=== PATIENT | female | born 1985 | race Caucasian/White ===

== ENCOUNTER 2022-05-21 12:21 | Emergency (ER) | payer OTHER, MEDICAID, SELFPAY ==
[2022-05-21 12:29] VITALS: BP 150/87; PULSE 96; RESP 18; TEMP 36.9; O2SAT 98; BMI 33.3
--- NOTE | 2022-05-21 13:17 | ED_ITS ---
HPI - Wound/Laceration <SANAM Franco - Last Filed: 05/21/22 13:27> General Chief Complaint: Wound/Laceration Stated Complaint: Lt. hand middle fingure spider bite Time Seen by Provider: 05/21/22 12:58 Source: patient Mode of arrival: Ambulatory History of Present Illness HPI narrative: 28-year-old female, nonsmoker, presents emergency department with left hand middle finger lesion and psoriasis flare of left hand and bilateral feet. Patient tried to drain the lesion but states that it only makes it worse. Left middle finger is now red and swollen. Lesion left palm and feet are consistent with a psoriasis flare. Patient reports he typically is treated with a tapering dose of steroids for this. Related Data Previous Rx's Medication Instructions Recorded cephalexin 500 mg capsule 1,000 mg PO BID Cellulitis 10 days 05/21/22 #40 caps prednisone 20 mg tablet 20 mg PO DAILY Psoriasis flare #15 05/21/22 tabs Allergies Allergy/AdvReac Type Severity Reaction Status Date / Time sulfamethoxazole Allergy Intermediate Hives Verified 05/21/22 12:34 [From Bactrim] trimethoprim [From Bactrim] Allergy Intermediate Hives Verified 05/21/22 12:34 Review of Systems <SANAM Franco - Last Filed: 05/21/22 13:27> Review of Systems Narrative: Narrative: GENERAL: Denies chills, fatigue, fever, sweats. See HPI HEENT: Denies sinus pain, ear pain, sore throat, difficulty swallowing, dizziness. RESPIRATORY: Denies dyspnea, cough, wheezing, sputum. CARDIOVASCULAR: Denies chest pain, palpitations, edema. GASTROINTESTINAL: Denies nausea, vomiting, abdominal pain, diarrhea, constipation. : Denies dysuria, frequency, incontinence, hematuria, urinary retention, flank pain. MSK: Endorses weakness of left hand secondary to pain from the lesion and psoriasis outbreak. SKIN: Endorses a 0.3 cm pustular lesion on left middle finger proximal phalange. NEUROLOGIC: Denies weakness, dizziness, headache, numbness, confusion. PSYCHIATRIC: No concerning psychosocial issues. Patient History <SANAM Franco - Last Filed: 05/21/22 13:27> Social History Smoking Status: Never smoker Smoking Status: Never smoker alcohol intake frequency: 0-2 drinks per day Substance Use Type: does not use Exam <SANAM Franco - Last Filed: 05/21/22 13:27> Narrative Exam Narrative: Exam Narrative: GENERAL: This is a well-nourished, well-developed patient, in no acute distress HEAD: Atraumatic. Normocephalic. MSK: Moves all extremities. NEURO: A&O x 3. SKIN: 0.3 cm pustular lesion on left middle finger proximal phalange. Lesion was cleansed with alcohol and punctured with an 18 gauge needle. Purulence drainage was cultured. Positive redness and fluctuance. No red streaking or active discharge. Left palm has a 5 cm x 8 cm rash that is oozing.. Initial Vital Signs Initial Vital Signs: Vital Signs Temperature 98.5 F 05/21/22 12:29 Pulse Rate 96 H 05/21/22 12:29 Respiratory Rate 18 05/21/22 12:29 Blood Pressure 150/87 H 05/21/22 12:29 Pulse Oximetry 98 05/21/22 12:29 Oxygen Delivery Method 05/21/22 12:29 Reviewed <Angelina Flood DO - Last Filed: 05/23/22 09:46> Initial Vital Signs Initial Vital Signs: Vital Signs Temperature 98.5 F 05/21/22 12:29 Pulse Rate 96 H 05/21/22 12:29 Respiratory Rate 18 05/21/22 12:29 Blood Pressure 150/87 H 05/21/22 12:29 Pulse Oximetry 98 05/21/22 12:29 Oxygen Delivery Method 05/21/22 12:29 Course <SANAM Franco - Last Filed: 05/21/22 13:27> Orders Ordered: ED Orders 05/21/22 13:20 Wound Culture and Gram Stain Stat Vital Signs Vital signs: Vital Signs - 8 hr 05/21/22 12:29 Temperature 98.5 F Pulse Rate 96 H Respiratory Rate 18 Blood Pressure 150/87 H Pulse Oximetry 98 Oxygen Delivery Method Room Air <Angelina Flood DO - Last Filed: 05/23/22 09:46> Orders Ordered: ED Orders 05/21/22 13:20 Wound Culture and Gram Stain Stat Vital Signs Vital signs: Vital Signs - 8 hr 05/21/22 12:29 Temperature 98.5 F Pulse Rate 96 H Respiratory Rate 18 Blood Pressure 150/87 H Pulse Oximetry 98 Oxygen Delivery Method Room Air MDM - Wound/Laceration <SANAM Franco - Last Filed: 05/21/22 13:27> Differential Diagnosis Differential diagnosis: Likely other (Psoriasis and cellulitis) MDM Narrative Medical decision making narrative: 36-year-old female presents emergency room with a psoriasis flare and a left middle finger lesion that may have been related to a bug bite. Site was closed and drained. Patient tolerated procedure well. Will treat patient with antibiotics for the cellulitis and steroids for her psoriasis flare. Discussed plan of care and return precautions with patient, who was agreeable with course of action. Discharge Plan Departure Patient Disposition: Home Clinical Impression: Cellulitis of finger of left hand, Psoriasis Instructions: DI for Wound Infection Activity Restrictions/Additional Instructions: *You have been diagnosed with cellulitis of your left finger along with a psoriasis outbreak. I will prescribe a tapering dose of steroids for your psoriasis flare and a regimen of antibiotics for your cellulitis. I recommend you soak the finger in warm water 2 to 3 times a day to facilitate any drainage. Will contact you with the results of your wound culture, only for requires a change in antibiotics. Please follow-up with your family doctor if symptoms persist worsen. *What to do: *Please continue to take your regular medications as directed. [x ] New medication prescriptions sent to your pharmacy: [[facility] in [place]] [ ] New medication written as a paper prescription [ ] No new medications given *Please follow up with your primary care provider in 2-3 days, call for an appointment. Let them know you were seen in the Emergency Department and that we ask that you be seen in follow up. We will electronically transmit a record of today's note if your PCP is in our system *If you do not have a primary care provider please contact the [facility] Resource line at [phone]. They will ask some questions about your medical history and help get you set up with a doctor in the community. ? Return to ER if you should have any new, worsening or concerning symptoms, such as worsening pain, severe headache, confusion, chest pain, difficulty breathing, fever greater than 101 F, shaking chills, persistent vomiting to the point that you cannot drink fluids, or other new or worsening symptoms. Prescriptions: New cephalexin 500 mg capsule 1,000 mg PO BID 10 Days Qty: 40 0RF prednisone 20 mg tablet 20 mg PO DAILY Qty: 15 0RF Rx Instructions: Take 3 tablets once a day x3 days, then take 2 pills once a day x2 days, then take 1 pill once a day x2 days. Visit Report Forms: Patient Portal/API <Angelina Flood DO - Last Filed: 05/23/22 09:46> Cosign ED Attending Cosignature Attestation: I was immediately available in the department for consultation. Documentation has been reviewed. I agree with assessment and plan.
== END 2022-05-21 13:18 | disposition home or self-care (01) ==
PROVIDERS: Emergency Provider Registered Nurse
DX: L03.012 Cellulitis of left finger (principal); L40.9 Psoriasis, unspecified
CPT/HCPCS: 87070; 87077; 87147; 87205; 99281; 99282